=== PATIENT | male | born 1970 | race Caucasian/White ===

== ENCOUNTER 2016-04-23 09:59 | Emergency (ER) | payer OTHER ==
[2016-04-23 10:45] VITALS: BP 122/89
--- NOTE | 2016-04-23 11:47 | ERNOTE ---
Date of Service: 04/23/16 Time Seen by Provider: 04/23/16 11:15 Stated Complaint: COLD Presenting Symptoms:: cough, sore throat, runny nose Source: patient, family Exam Limitations: no limitations Allergies/Adverse Reactions: Allergies No Known Allergies Allergy (Verified 04/23/16 10:44) Home Medications: HOME MEDICATIONS Olmesartan/Hydrochlorothiazide [Benicar Hct 20-12.5 mg Tablet] 1 each PO DAILY 10/29/15 [Last Taken 11/08/15] Testosterone [Androgel] 1 appl TD DAILY 10/29/15 [Last Taken 11/08/15] oxyCODONE HCL/ACETAMINOPHEN [Percocet 5 MG/325 MG] 1 tab PO Q4H PRN #30 tablet 11/08/15 [Last Taken Unknown] - History of Present Ilness Narrative: patient is a 45 year old male with history of HTN who presents to the ED with complaints of feeling sick since Sunday. States beginning Sunday, started to have diarrhea, clear productive cough, body aches, headache and weakness. States he vomited once yesterday. Sitting in room, laughing with ULTRASOUND COORDINATOR. Does not appear to be in any acute distress Date (Duration): 04/21/16 Timing: constant Severity: mild Frequency/Possible Cause: Reports: no prior episodes, illness exposure - states "my was exposed to someone with flu last week" Modifying Factors - Improves: Reports: rest Modifying Factors - Worsens: Reports: activity, coughing, deep breath Associated Symptoms: Reports: cough, nasal congestion, nasal drainage, headache , muscle aches. Denies: wheezing, dizziness, lightheadedness, earache, sore throat, fever/chills Review of Systems - Review of Systems Constitutional: Present: See HPI, weakness. Absent: fever, chills, diaphoresis , weight loss EYE: Present: no symptoms reported ENT: Present: nose congestion, nasal drainage. Absent: ear pain, ear discharge , nose pain, sore throat, throat swelling Respiratory: Present: cough. Absent: shortness of breath, wheezing, stridor Cardiology: Absent: chest pain, palpitations, edema Gastrointestinal/Abdominal: Present: nausea, vomiting, diarrhea, eating less, drinking less. Absent: abdominal pain Genitourinary: Present: no symptoms reported Musculoskeletal: Present: no symptoms reported Skin: Present: no symptoms reported. Absent: rash, dryness Neurological: Present: headache. Absent: dizziness/light-headedness - Patient's Past Medical History Patient History - Medical: No pertinent hx Patient History - Cancer: No Hx of Cancer Patient History - Surgical Procedures: Other - Family History Mother Family History - Medical: Diabetes Type 2 Family History - Cardiac/Respiratory: No pertinent hx Brother Family History - Medical: No pertinent hx Family History - Cardiac/Respiratory: History Unknown Father Family History - Medical: History Unknown Family History - Cardiac/Respiratory: History Unknown - Social History Living Situations: spouse Alcohol Use: occasionally Drug Use: none Physical Exam - Physical Exam General Appearance: Present: wd/wn, alert, no apparent distress Eye Exam: Normal inspection: bilateral Ears, Nose, Throat: Present: hearing grossly normal, normal pharynx. Absent: dry mucous membranes Neck: Present: normal inspection, nontender, full range of motion. Absent: lymphadenopathy (R), lymphadenopathy (L) Respiratory: Present: no respiratory distress, normal breath sounds, no accessory muscle use, chest nontender, lungs clear. Absent: chest tenderness, respiratory distress, accessory muscle use, wheezing Cardiovascular/Chest: Present: regular rate, rhythm, no murmur, normal peripheral pulses Peripheral Pulses: N=norm/S=strong/W=weak/B=bound/A=absent: Radial (R): Strong, Radial (L): Strong Gastrointestinal/Abdominal: Present: normal bowel sounds, nontender, nondistended, soft, no organomegaly Back Exam: Present: normal inspection, normal range of motion, no CVA tenderness , no vertebral tenderness Extremity Exam: Present: normal inspection, non-tender, no edema, normal range of motion Neurological Exam: Present: alert, oriented, normal mood/affect, no motor/ sensory deficits Skin Exam: Present: normal color, warm/dry. Absent: diaphoresis, cyanosis, skin rash Lymphatic Exam: Present: no adenopathy ED Progress - Vital Signs Vital Signs: Vital Signs 04/23/16 10:42 Temperature 37.6 C H Pulse Rate 103 H Respiratory 14 Rate Blood Pressure 122/89 O2 Sat by Pulse 95 Oximetry - Progress/Reassessment Chief Complaint: Upper Respiratory Symptoms Departure - Departure Clinical Impression: Influenza A Disposition: Home Follow Up Needed Condition: Good Instructions: Influenza, Adult, [id number], Form - Excuse from Work, School, or Physical Activity Additional Instructions: Push fluids, especially water or gatorade. Eat as tolerated. Tylenol 1000 mg every 6 hours for fever, body aches. Return if chest pain unrelieved by Tylenol , worsening shortness of breath occurs.
== END 2016-04-23 12:00 | disposition home or self-care (01) ==
LOC: ER 09:59
DX: J09.X2 Influenza due to identified novel influenza A virus with other respiratory manifestations (principal)

== ENCOUNTER 2016-05-29 09:40 | Day surgery (SDC) | payer OTHER ==
[~2016-05-29 09:40] MED LIST: ACETAMINOPHEN 325 MG TABLET PO PRN; ACETYLCHOLINE CHLORIDE 20 DROP KIT IO PRN; BUPIVACAINE HCL/PF 30 ML VIAL IJ PRN; CYCLOPENTOLATE HCL 20 DROP BTL LEFTEYE PRN; DEXTROSE 5%-0.5 NORMAL SALINE 1,000 ML IV PRN; EPINEPHrine 1 MG/ML AMPUL IO PRN; HYALURONATE SODIUM 0.4 ML DISP.SYRIN IO PRN; HYALURONATE SODIUM 0.85 ML DISP.SYRIN IO PRN; LIDOCAINE HCL/PF 200 MG/5 ML AMPUL TP PRN; LIDOCAINE HCL/PF 5 ML VIAL IO PRN; NORMAL SALINE 3 ML BOX IV PRN; TETRACAINE HCL 150 DROP BTL OP PRN
--- OUTSIDE RECORDS SUMMARY | 2016-05-29 09:45 | XMS REPORT | Continuity of Care Document ---
:1970 Author Organization [employer] [place] [address] Care Team Providers Name Role Oliver Zimmerman Primary Care Provider [phone] Source Comments This disclosure is being made pursuant to the [employer] program and maynot contain all information available regarding this patient.[facility] Active Allergies and Adverse Reactions No Known Allergies Current Medications Be aware that medications may not be up to date as of this document. Alwaysverify current medications with the patient. Prescription Sig. Disp. Refills Start Date End Date Status Unclassified (UNABLE Benicar, hctz, Active TO FIND) androgel ranitidine (ZANTAC) Take 1 tablet by 30 tablet 0 05/25/2015 Active 150 MG tablet mouth 2 (two) times daily. Active Problems Not on file Social History Tobacco Use Types Packs/Day Years Used Date Former Smoker Smokeless Tobacco: Never Used Alcohol Use Drinks/Week oz/Week Comments No Last Filed Vital Signs Vital Sign Reading Time Taken Blood Pressure 126/83 05/25/2015 12:25 PM PUBLICIST Pulse 75 05/25/2015 12:39 PM PUBLICIST Temperature 36.2 C (97.2 F) 05/25/2015 10:15 AM PUBLICIST Respiratory Rate 14 05/25/2015 12:25 PM PUBLICIST Height - - Weight 84.4 kg (186 lb 1.1 oz) 05/25/2015 10:15 AM PUBLICIST Body Mass Index - - Oxygen Saturation 81% 05/25/2015 12:39 PM PUBLICIST Plan of Care Health Maintenance Due Date Last Done Comments Tetanus/Pertussis (1 - Tdap) 07/31/1990 Influenza Immunization (#1) 2015 Results from Last 3 Months Not on file
--- OUTSIDE RECORDS SUMMARY | 2016-05-29 09:45 | XMS REPORT | Continuity of Care Document ---
:1970 Author Organization [facility] ([facility]) [place] [address] Phone [phone] Care Team Providers Name Role Phone Provider, No-Primary Care Primary Care Provider Unavailable Source Comments This disclosure is being made pursuant to the Care Everywhere program, applicable federal and state laws, and may not contain all informaitonavailable regarding this patient.[facility] ([facility]) Active Allergies and Adverse Reactions No Known Allergies Current Medications Prescription Sig. Disp. Refills Start Date End Date Status olmesartan-hydrochloroth Take 1 tablet by Active iazide (BENICAR HCT) mouth daily. 20-12.5 mg per tablet testosterone (ANDROGEL) Apply 25 mg Active 1 % (25 mg/2.5 g) topically daily. topical gel Active Problems Problem Noted Date Hypertension 05/18/2016 Obesity (BMI 30.0-34.9) 05/18/2016 Closed dislocation of metatarsophalangeal (joint) 05/01/2005 Most Recent Encounters Date Type Specialty Providers Description 05/18/2016 Office Visit [facility] - Primary Melissa Barrett PA-C Dx: Pre- op evaluation (Primary Dx) Social History Tobacco Use Types Packs/Day Years Used Date Never Smoker Alcohol Use Drinks/Week oz/Week Comments Yes Last Filed Vital Signs Vital Sign Reading Time Taken Blood Pressure 122/72 05/18/2016 10:34 AM BELLY DANCER Pulse 84 05/18/2016 10:34 AM BELLY DANCER Temperature 37.2 C (98.9 F) 05/18/2016 10:34 AM BELLY DANCER Respiratory Rate 18 05/18/2016 10:34 AM BELLY DANCER Height 1.56 m (5' 1.41") 04/11/2006 11:59 AM BELLY DANCER Weight 80.65 kg (177 lb 12.8 oz) 05/18/2016 10:34 AM BELLY DANCER Body Mass Index 33.14 05/18/2016 10:34 AM BELLY DANCER Oxygen Saturation - - Plan of Care Date Type Specialty Providers Description 06/15/2016 Appointment [place] [facility] Melissa Barrett, [facility] Chief Comp: Patient [address] Reported Reason For MELISSA RYAN [id number] Visit [phone] Health Maintenance Due Date Last Done Comments Hepatitis B Vaccine (1 of 3 - Primary Series) 1970 Tdap Vaccine 07/31/1982 Lipid Disorder Screening 07/31/1989 MMR Vaccine 07/31/1989 Td Vaccine 07/31/1989 Influenza Vaccine: Seasonal (#1) 11/08/2015 Results from Last 3 Months Not on file
[2016-05-29] MEDS: PHENYLEPHRINE HCL 50 DROP BTL LEFTEYE PRN ×3 (09:58→10:36)
[2016-05-29] MEDS: TROPICAMIDE 150 DROP BTL LEFTEYE PRN ×3 (09:58→10:36)
[2016-05-29 12:38] VITALS: BP 127/75
== END 2016-05-29 09:41 | disposition home or self-care (01) ==
LOC: AMB 09:40
PROVIDERS: ATTEND Ophthalmology
PROC: 08RK3JZ Replacement of Left Lens with Synthetic Substitute, Percutaneous Approach (ICD-10-PCS; principal; 2016-05-29 10:40)
DX: H26.9 Unspecified cataract (principal); I10 Essential (primary) hypertension; Z68.32 Body mass index [BMI] 32.0-32.9, adult

== ENCOUNTER 2016-06-26 12:00 | Day surgery (SDC) | payer OTHER ==
[~2016-06-26 12:00] MED LIST changes: -CYCLOPENTOLATE HCL 20 DROP BTL LEFTEYE PRN; +CYCLOPENTOLATE HCL 20 DROP BTL RIGHTEYE PRN
--- OUTSIDE RECORDS SUMMARY | 2016-06-26 12:03 | XMS REPORT | Continuity of Care Document ---
:1970 Author Organization [facility] [place] [address] Care Team Providers Name Role Oliver Zimmerman Primary Care Provider [phone] Source Comments This disclosure is being made pursuant to the [employer] program and maynot contain all information available regarding this patient.[facility] Active Allergies and Adverse Reactions No Known [...] Taken Blood Pressure 126/83 05/25/2015 12:25 PM MARKETING PERFORMANCE ANALYST Pulse 75 05/25/2015 12:39 PM MARKETING PERFORMANCE ANALYST Temperature 36.2 C (97.2 F) 05/25/2015 10:15 AM MARKETING PERFORMANCE ANALYST Respiratory Rate 14 05/25/2015 12:25 PM MARKETING PERFORMANCE ANALYST Height - - Weight 84.4 kg (186 lb 1.1 oz) 05/25/2015 10:15 AM MARKETING PERFORMANCE ANALYST Body Mass Index - - Oxygen Saturation 81% 05/25/2015 12:39 PM MARKETING PERFORMANCE ANALYST Plan of Care Health Maintenance Due Date Last Done Comments Tetanus/Pertussis (1 - Tdap) 07/31/1990 Influenza Immunization (#1) 2015 Results from Last 3 Months Not on file
--- OUTSIDE RECORDS SUMMARY | 2016-06-26 12:04 | XMS REPORT | Continuity of Care Document ---
:1970 Author Organization [facility] ([facility]) Address [place] [address] Phone [phone] Care Team Providers Name Role Phone Provider, No-Primary Care Primary Care Provider Unavailable Source Comments This disclosure is being made pursuant to the Care Everywhere program, applicable federal and state laws, and may not contain all informaitonavailable regarding this patient.[facility] ([facility]) Active Allergies and Adverse Reactions No Known Allergies Current Medications Prescription Sig. Disp. Refills Start Date End Date Status olmesartan-hydrochloroth Take 1 tablet by Active iazide (BENICAR HCT) mouth daily. 20-12.5 mg per tablet testosterone (ANDROGEL) Apply 25 mg Active 1 % (25 mg/2.5 g) topically daily. topical gel BESIVANCE 0.6 % 05/15/2016 Active ophthalmic suspension PROLENSA 0.07 % 05/16/2016 Active ophthalmic solution prednisoLONE acetate 1 % 05/15/2016 Active ophthalmic suspension Active Problems Problem Noted Date GERD (gastroesophageal reflux disease) 06/08/2016 IBS (irritable bowel syndrome) 06/08/2016 Low testosterone level in male 06/08/2016 Hypertension 05/18/2016 Obesity (BMI 30.0-34.9) 05/18/2016 Closed dislocation of metatarsophalangeal (joint) 05/01/2005 Most Recent Encounters Date Type Specialty Providers Description 06/15/2016 Office Visit Melissa Mckeon PA-C Chief Comp : Patient Reported Reason For Visit 06/15/2016 Office Visit Melissa Mckeon PA-C Dx: Pre- op evaluation (Primary Dx) 06/08/2016 Orders/Notes Chirag Palm DO 06/01/2016 Orders/Notes Melissa Mckeon PA-C Dx: Sleep apnea, unspecified type (Primary Dx) 05/18/2016 Office Visit Melissa Mckeon PA-C Dx: Pre- op evaluation (Primary Dx) Social History Tobacco Use Types Packs/Day Years Used Date Never Smoker Alcohol Use Drinks/Week oz/Week Comments Yes Last Filed Vital Signs Vital Sign Reading Time Taken Blood Pressure 120/84 06/15/2016 9:05 AM COIL ASSEMBLER Pulse 72 06/15/2016 9:05 AM COIL ASSEMBLER Temperature 36.8 C (98.3 F) 06/15/2016 9:05 AM COIL ASSEMBLER Respiratory Rate 18 05/18/2016 10:34 AM COIL ASSEMBLER Height 1.56 m (5' 1.41") 04/11/2006 11:59 AM COIL ASSEMBLER Weight 81.012 kg (178 lb 9.6 oz) 06/15/2016 9:05 AM COIL ASSEMBLER Body Mass Index 33.29 06/15/2016 9:05 AM COIL ASSEMBLER Oxygen Saturation - - Plan of Care Health Maintenance Due Date Last Done Comments Hepatitis B Vaccine (1 of 3 - Primary Series) 1970 Tdap Vaccine 07/31/1982 MMR Vaccine 07/31/1989 Td Vaccine 07/31/1989 Influenza Vaccine: Seasonal (#1) 11/08/2015 Lipid Disorder Screening 06/15/2021 06/15/2016 Results from Last 3 Months [facility] TESTOSTERONE, TOTAL AND FREE (06/15/2016 9:30 AM) Specimen Blood [facility] COMPREHENSIVE METABOLIC PANEL (CMP) (06/15/2016 9:30 AM) Component Value Range [facility] Sodium 141 137-145 mmol/L [facility] Potassium 4.6 3.4-5.1 mmol/L [facility] Chloride 106 98-107 mmol/L [facility] CO2 25 20-30 mmol/L [facility] Glucose 99 60-110 mg/dL [facility] BUN 20 9-20 mg/dL [facility] Creatinine 1.34(H) 0.70-1.25 mg/dL [facility] Total Protein 7.6 6.3-8.2 g/dL [facility] Calcium 9.8 8.4-10.5 mg/dL [facility] Albumin 4.7 3.0-5.0 g/dL [facility] ALP 69 36-113 U/L [facility] ALT/SGPT 54(H) 11-47 U/L [facility] AST/SGOT 32 17-59 U/L [facility] Calculated GFR 58(L) >60 mL/min/1.73 m2 [facility] Bilirubin, Total 0.8 0.2-1.3 mg/dL Specimen Blood [facility] LIPID PROFILE (06/15/2016 9:30 AM) Component Value Range [facility] Cholesterol 244(H) 0-200 mg/dL [facility] Triglycerides 246(H) 0-150 mg/dL [facility] HDL Cholesterol 69(H) 40-60 mg/dL [facility] LDL, Quant 125.8 <=130 mg/dL Specimen Blood
[2016-06-26] MEDS: PHENYLEPHRINE HCL 50 DROP BTL RIGHTEYE PRN ×3 (12:50→13:15)
[2016-06-26] MEDS: TROPICAMIDE 150 DROP BTL RIGHTEYE PRN ×3 (12:50→13:15)
[2016-06-26 14:48] VITALS: BP 118/79
== END 2016-06-26 12:01 | disposition home or self-care (01) ==
LOC: AMB 12:00
PROVIDERS: ATTEND Ophthalmology
PROC: 08RJ3JZ Replacement of Right Lens with Synthetic Substitute, Percutaneous Approach (ICD-10-PCS; principal; 2016-06-26 13:15)
DX: H26.9 Unspecified cataract (principal); I10 Essential (primary) hypertension; Z68.32 Body mass index [BMI] 32.0-32.9, adult

== ENCOUNTER 2017-02-24 08:37 | Emergency (ER) | payer OTHER ==
[2017-02-24] MEDS ORDERED: DICYCLOMINE HCL 10 MG/ML AMPUL IM ONE ×2 (08:49→08:59)
--- NOTE | 2017-02-24 08:53 | ERNOTE ---
Abdominal HPI - Narrative Date of Service: 02/24/17 - General Chief Complaint: Abdominal Pain Time Seen by Provider: 02/24/17 08:45 Source: patient Exam Limitations: no limitations - Immun/Allergies/Home Medications Immunizatons: IMMUNIZATION HX Immunizations Up to Date No History of Influenza Vaccine No Allergies/Adverse Reactions: Allergies No Known Allergies Allergy (Verified 06/26/16 12:49) Home Medications: HOME MEDICATIONS Olmesartan/Hydrochlorothiazide [Benicar Hct 20-12.5 mg Tablet] 1 each PO DAILY 10/29/15 [Last Taken 05/29/16 06:00] Dicyclomine HCl [Bentyl] 10 mg PO TID PRN #20 tab 02/24/17 [Last Taken Unknown] - History of Present Illness Narrative: Patient presents to the ED for evaluation of abdominal pain. This has been going on for a week. It is not localized. Its mid abdominal cramping that seems to generalize to his whole abdomen. He relates diarrhea with this but tells me that is normal for him because he has IBS. No blood in stool. Nausea with this, one episode of vomiting. No fever. No CP or SOB. No blood in stool. Has not seen anyone else for this. Pain mild. Timing: constant, other - waxing and waning Quality: mild Activities at Onset: none Modifying Factors - (Improves): Present: other - nothing Modifying Factors - (Worsens): Present: other - nothing Associated Symptoms: Absent: chest pain, diarrhea-gross blood, diarrhea-mucous, fever/chills, shortness of breath, swelling/mass in abdomen Prior Abdominal Problems: Present: other - IBS Prior Treatment: Absent: recently seen Review of Systems - Review of Systems Constitutional: Absent: fever Respiratory: Absent: shortness of breath Cardiology: Absent: chest pain Gastrointestinal/Abdominal: Present: See HPI Genitourinary: Absent: dysuria Skin: Absent: rash Neurological: Absent: weakness - Patient's Past Medical History Patient History - Medical: Cataracts Patient History - Cardiac/Respiratory: Hypertension Patient History - Cancer: No Hx of Cancer Patient History - Surgical Procedures: Cataracts, Other Patient History - Other: None - Family History Mother Family History - Medical: Diabetes Type 2 Family History - Cardiac/Respiratory: No pertinent hx Family History - Cancer: No pertinent family hx Brother Family History - Medical: No pertinent hx Family History - Cardiac/Respiratory: No pertinent hx Family History - Cancer: No pertinent family hx Father Family History - Medical: No pertinent hx Family History - Cardiac/Respiratory: No pertinent hx Family History - Cancer: No pertinent family hx - Social History Abuse History: No History of abuse Psych History: Hx of Anxiety Smoking Status: Never smoker - Immunizations Immunizations Up to Date: No History of Influenza Vaccine: No Physical Exam - Physical Exam General Appearance: Present: alert, no apparent distress Head Exam: Present: normal inspection, no evidence of injury Eye Exam: Normal inspection: bilateral Ears, Nose, Throat: Present: normal ENT inspection Neck: Present: normal inspection Respiratory: Present: no respiratory distress, normal breath sounds, no accessory muscle use, lungs clear Cardiovascular/Chest: Present: regular rate, rhythm, normal peripheral pulses Gastrointestinal/Abdominal: Present: normal bowel sounds, nondistended, soft, other - mild epigastric tendenress. No strangulated or incarcerated hernias. Non-surgical exam Back Exam: Absent: CVA tenderness (R), CVA tenderness (L) Extremity Exam: Present: normal inspection Neurological Exam: Present: alert, normal mood/affect, no motor/sensory deficits Skin Exam: Present: normal color, warm/dry ED Progress - Results and Orders Patient's Lab Results:: I have reviewed the patient's lab results. - Vital Signs Patient's Vital Signs:: I have reviewed the patient's vital signs. Vital Signs: Vital Signs 02/24/17 08:44 Temperature 37.2 C Pulse Rate 101 H Respiratory 18 Rate Blood Pressure 143/95 O2 Sat by Pulse 93 Oximetry - X-Ray X-Ray #1 X-Ray: abdomen Interpretation: Interp. by me X-ray Comments: I reviewed official radiology report - CT/Ultrasound CT/Ultrasound Narrative: I reviewed official radiology report - Progress/Reassessment Chief Complaint: Abdominal Pain Progress Note-Subjective: 02/24/17 11:54 No clear etiology based on labs and CT/imaging. He wishes to go home. I will place him on Bentyl and have him follow-up sunday with his PCP. No clear cause. No identifiable life threat or surgical process. I disucssed warning signs and reasons to reutrn as well as the need for close f/u. 02/24/17 11:55 Departure Clinical Impression: Abdominal pain - Departure Disposition: Home self-care Condition: Stable Instructions: Abdominal Pain, Adult, [id number] Additional Instructions: Rest. Fluids. Follow-up Sunday as directed with your primary doctor. Return for fever, vomiting, increased pain or if your condition worsens or changes in any way. Referrals: IVIS MONTEMAYOR [Primary Care Provider] - Prescriptions: Dicyclomine HCl [Bentyl] 10 mg PO TID PRN #20 tab PRN Reason: Pain
[2017-02-24 09:01] LABS: Hemoglobin 16.2 gm/dL (13.5-18.0); Mean Cell Volume 92.1 fl (78-100); Mean Corpuscular Hemoglobin 31.1 pg (27-31); Mean Corpuscular Hgb Conc 33.8 g/dl (32-36); Mean Platelet Volume 9.1 fl (6.0-9.5); Neutrophil # 6.8 K/mm3 (1.3-6.0); Neutrophil % 86.6 % (42-75.0); Platelet Count 257 K/mm3 (150-450); Red Blood Count 5.21 M/mm3 (4.7-6.0); Red Cell Distribution Width 13.3 % (11.5-14.0); White Blood Count 7.8 K/mm3 (4.0-10.5)
[2017-02-24 09:14] LABS: Anion Gap 17.1 mmol/L (6.8-13.8); BUN/Creatinine Ratio 18.8 (9.0-21.6); Bilirubin, Total 0.7 mg/dL (0.0-1.1); Ca. Corrected For Albumin 9.1 mg/dL (8.4-10.2); Calcium * 9.4 mg/dL (7.9-10.9); Carbon Dioxide 24.1 mmol/L (24-32.6); Potassium 4.2 mmol/L (3.4-4.6); Total Protein 7.7 gm/dL (6.2-8.2)
[2017-02-24 09:22] LABS: Urine Appearance Clear; Urine Bilirubin Negative (NEGATIVE); Urine Blood Negative /ul (NEGATIVE); Urine Color Yellow; Urine Ketone Negative (NEGATIVE); Urine Nitrite Negative (NEGATIVE); Urine Protein Negative (NEGATIVE); Urine Specific Gravity 1.025 SP.GR. (1.005-1.030); Urine Urobilinogen Normal (NORMAL)
[2017-02-24 09:23] LABS: Urine Bacteria 1+; Urine RBC None Seen /hpf (0-5); Urine WBC None Seen /hpf (0-5)
[2017-02-24] MEDS ORDERED: NORMAL SALINE 1,000 ML IV ONE (09:36)
[2017-02-24] MEDS ORDERED: DIATRIZOATE MEGLUMINE, SODIUM 30 ML BTL ONE (09:44)
[2017-02-24] MEDS ORDERED: DIATRIZOATE MEGLUMINE, SODIUM 30 ML BTL PO ONE (10:00)
[2017-02-24] MEDS ORDERED: ONDANSETRON HCL/PF 2 MG/ML VIAL IV ONE (10:08)
[2017-02-24] MEDS ORDERED: ONDANSETRON HCL/PF 2 MG/ML VIAL ONE (10:33)
[2017-02-24 11:53] VITALS: BP 125/84
== END 2017-02-24 12:02 | disposition home or self-care (01) ==
LOC: ER 08:37
DX: R10.9 Unspecified abdominal pain (principal); I10 Essential (primary) hypertension
CPT/HCPCS: 36415; 74020; 74177; 80053; 81001; 83690; 85025; 87045; 87046; 96372; 96374; 99284; J2405